=== PATIENT | female | born 1965 | race Caucasian/White ===

== ENCOUNTER 2020-12-26 10:30 | Day surgery (SDC) | payer BC ==
--- NOTE | 2020-12-23 11:56 | RAD REPORT ---
EXAM DESCRIPTION: [facility] (2 Views)12/23/2020 11:49 am CLINICAL HISTORY: Preop for cardiac catheterization. Hypertension COMPARISON: None FINDINGS: The lungs appear clear of acute infiltrate. The heart is probably borderline enlarged IMPRESSION: No acute abnormalities displayed
[2020-12-23 12:21] LABS: Protime INR 0.91
[2020-12-23 12:30] LABS: Absolute Lymphocytes (CBC) 2.2 K/uL (0.7-4.9); Hematocrit 38.2 % (36.0-45.0); Lymphocytes % 32.2 % (15.3-44.8); MPV 11.8 fL (7.6-11.3); RBC Red Blood Cell Count 4.48 M/uL (3.86-4.86)
[2020-12-23 12:34] LABS: BUN Blood Urea Nitrogen 14 mg/dL (7-18); Bicarbonate 27 mmol/L (21-32); Glucose Level 227 mg/dL (74-106); Potassium 4.7 mmol/L (3.5-5.1); Sodium Level 139 mmol/L (136-145)
[2020-12-23 13:51] LABS: Blood Morphology Comment NOT SEEN (NOT SEEN); Platelet Estimate DECR; Platelets, Giant PRESENT; White Blood Cell Scan OK (OK)
--- NOTE | 2020-12-24 07:58 | EKG ---
Test Date: 2020-12-23 Test Time: 10:29:16 International Specialist: PATSY MEASUREMENT RESULTS: Intervals: Rate: 71 NJ: 148 QRSD: 148 QT: 456 QTc: 495 [place]: P: 25 NJ: 148 QRS: 44 T: 31 INTERPRETIVE STATEMENTS: Normal sinus rhythm Left bundle branch block Abnormal ECG Compared to ECG 11/17/1997 22:32:00 Left bundle-branch block now present Electronically Signed On 12-24-20 07:56:52 CDT by Shmuel Diamond
[2020-12-26] MEDS ORDERED: HEPARIN 5000 UNIT/ML 1 ML VIAL ONE (11:27)
[2020-12-26] MEDS ORDERED: VERAPAMIL HCL 10 MG/4 ML VIAL IV ONE (11:27)
[2020-12-26] MEDS ORDERED: HEPARIN 10,000 UNIT/10 ML VIAL IV ONE (11:27)
[2020-12-26] MEDS ORDERED: ATROPINE SULF 1 MG/10 ML SYR IV ONE (11:27)
[2020-12-26] MEDS ORDERED: MIDAZOLAM HCL 2 MG/2 ML INJ ONE (11:30)
[2020-12-26] MEDS ORDERED: FENTANYL CITR 100 MCG/2 ML ONE (11:31)
[2020-12-26] MEDS ORDERED: HEPA 1000U/500MLS 2,000 UNIT/1,000 ML BAG IV ONE (11:34)
[2020-12-26 11:44] VITALS: TEMP 97
[2020-12-26 14:06] VITALS: BP 120/58; O2SAT 95
--- NOTE | 2020-12-26 14:19 | OP ---
Date of Procedure: 12/26/2020 Surgeon: SHAILESH NG Procedure Performed: Selective coronary angiogram. Indication: New onset left decrease in ejection fraction. Access: Right radial artery 6-Hungarian closed with TR band. Complications: None. Description Of Procedure: After risks, benefits, and alternatives were explained, the patient agreed to the procedure and signed informed consent. The patient was brought into the cardiac catheterizat ion laboratory, prepped and draped in usual sterile fashion. Then, we accessed right radial artery u sing a pediatric micropuncture kit, placed 6-Hungarian Slender sheath and took a 5-Hungarian [place] 4.0 cath eter into the aortic root, engaged the left main and right coronary artery, and took standard views a nd then removed the catheter and the sheath, and placed TR band with good hemostasis. Findings: 1.Left main is normal. 2.LAD; moderate-sized vessel, is normal. 3.Left circumflex; normal, non-dominant. 4.RCA; large, normal and dominant vessel. Conclusion: Normal coronary arteries. Recommendations: Guideline directed medical therapy for heart failure. SR/MODL Voice ID: [id number] Report ID: [id number]
== END 2020-12-26 14:58 | disposition home or self-care (01) ==
LOC: PRE 10:30 → CCL 14:58
PROVIDERS: ATTEND Internal Medicine
DX: I11.0 Hypertensive heart disease with heart failure (principal); I50.20 Unspecified systolic (congestive) heart failure; E11.9 Type 2 diabetes mellitus without complications; E78.5 Hyperlipidemia, unspecified; Z20.822 Contact with and (suspected) exposure to COVID-19; Z88.6 Allergy status to analgesic agent; Z88.8 Allergy status to other drugs, medicaments and biological substances; Z82.49 Family history of ischemic heart disease and other diseases of the circulatory system
CPT/HCPCS: 93005; 85025; 80048; 36415; 85610; 82947; 85730; 71046; 93454; U0003; C1893; J1644 ×2; J2250; J3010